=== PATIENT | female | born 1980 | race Two or more races ===

== ENCOUNTER → 2025-02-04 | Outpatient (CLI) | payer MEDICAID, SELFPAY ==
--- NOTE | 2025-02-04 11:00 | XR_ITS ---
Examination: Breast ultrasound, unilateral, left complete Date and time of exam: February 04, 2025 1101 hours INDICATIONS: Palpable lump left breast note is beginning one month ago Technique: Real-time castle scale ultrasonographic imaging performed left breast including all 4 quadrants as well as nipple retroareolar and axillary region. Findings: 4:00 nodule circumscribed 7 x 7 mm IMPRESSION: BI-RADS Category 3: Probably benign findings. Recommend 1 additional 6 month left breast sonogram follow-up to document stability of 4:00 nodule described above
--- NOTE | 2025-02-04 11:30 | XR_ITS ---
Examination: Diagnostic digital mammography, bilateral Computer aided detection 3-D breast Tomosynthesis, bilateral Date and time of exam: February 04, 2025 1118 hours Compared to mammograms dating to July 26, 2023 INDICATIONS: Patient states lump left breast noted beginning 3 months ago Technique: Nonmagnified MLO, CC views of the breasts to been obtained, reconstructed from 3-D Tomosynthesis images. R2 computer aided detection program utilized for evaluation of suspicious masses and/or abnormal calcifications. 3-D Tomosynthesis images obtained. Findings: Scattered areas of fibroglandular density. Benign calcifications. No suspicious masses noted Impression: BI-RADS Category 2: Benign findings Recommend yearly follow-up mammography Given the left breast sonogram report today, 4:00 o'clock nodule left breast 7 x 7 mm, recommend 6 month left breast sonogram follow-up.
== END | disposition home or self-care (01) ==
LOC: CDIM 10:46
DX: R92.323 Mammographic fibroglandular density, bilateral breasts (principal); R92.1 Mammographic calcification found on diagnostic imaging of breast; N63.23 Unspecified lump in the left breast, lower outer quadrant
CPT/HCPCS: 76641; 77062; 77066; G0279